=== PATIENT | female | born 2000 | race Caucasian/White ===

== ENCOUNTER 2024-12-17 18:09 | Emergency (ER) | payer BC, SELFPAY ==
[2024-12-17 18:12] VITALS: BP 137/91
[2024-12-17 18:35] LABS: % Basophils 0.4 % (0-2); % Eosinophils 3.2 % (0-6); % Immature Granulocytes 0.3 % (0-0.5); % Lymphocytes 30.8 % (20.5-51.1); % Monocytes 9.1 % (1.7-9.3); % Neutrophils 56.2 % (42.2-75.2); Absolute Eosinophils 0.2 10^3/uL (0-0.7); Absolute Lymphocytes 2.3 10^3/uL (1.2-3.4); Absolute Monocytes 0.7 10^3/uL (0.1-0.6); Absolute Neutrophils 4.2 10^3/uL (1.4-6.5); Hematocrit 40.1 % (37.0-47.0); Hemoglobin 13.7 g/dL (12.0-16.0); Mean Corp Hgb Conc. 34.2 g/dL (33.0-37.0); Mean Corpuscular Hgb 30.2 pg (27.0-31.0); Mean Corpuscular Volume 88.5 fL (81.0-99.0); Nucleated Red Blood Cells % 0 %; Platelet Count 280 10^3/uL (130-400); Red Blood Cell Count 4.53 10^6/uL (4.20-5.40); Red Cell Dist. Width 12.2 % (11.5-14.5); White Blood Cell Count 7.5 10^3/uL (4.8-10.8)
[2024-12-17 18:46] LABS: HCG, Serum Qualitative Screen Negative
[2024-12-17 18:52] LABS: ALT (SGPT) 30 U/L (0-35); AST (SGOT) 23 U/L (14-36); Albumin 4.9 g/dl (3.5-5.0); Alkaline Phosphatase 34 U/L (38-126); Blood Urea Nitrogen 13 mg/dl (7-17); Calcium 9.6 mg/dl (8.4-10.2); Carbon Dioxide 24 mmol/L (22-30); Chloride 110 mmol/L (98-107); Glucose 64 mg/dl (70-99); Sodium 141 mmol/L (135-145); Total Bilirubin 0.7 mg/dl (0.2-1.3); Total Protein 7.2 g/dl (6.3-8.2); eGFR > 60.00
--- NOTE | 2024-12-17 22:49 | ED.GENMED ---
History of Present Illness
General
Chief Complaint: Abdominal Pain
Source: patient
Exam Limitations: none
Time Seen by Provider: 12/17/24 22:45
Nursing documentation reviewed up to this point in time: agreed with
History of Present Illness
History of Present Illness:
This a pleasant 24-year-old female presents to the emergency department with left lower quadrant and pelvic pain that has been progressively worsening for the last week. She does report some light vaginal bleeding. She is midcycle and states that
this pain is reminiscent of previous ovarian cysts. She denies any pelvic surgeries. She did have appendectomy. Denies fever, chills, chest pain, or shortness of breath.
Vital signs are stable. Patient not hypoxic
Nursing note reviewed. I agree with nursing documentation up to this point in time.
Home Meds and allergies reviewed.
NUMBER AND COMPLEXITY OF PROBLEMS ADDRESSED AT THE ENCOUNTER
� Chronic conditions affecting care: None
� Acute Exacerbation and/or Progression of Chronic Illness: Acute illness
� Differential Diagnosis includes: Ovarian cyst, less likely torsion
AMOUNT AND/OR COMPLEXITY OF DATA TO BE REVIEWED AND ANALYZED
I performed an independent evaluation of the following and my interpretation is:
EKG:
Pulse Ox: Not Hypoxic
Hide Dyer: Sinus Rhythm
CT:
X-rays:
Ultrasound:
Laboratory Studies: negative
Other:
Review of other/old records:
Clinical information was obtained by an independent historian:
Prescriptions/Medications Considered but not given:
Further testing considered but not performed:
RISK OF COMPLICATIONS AND/OR MORBIDITY OR MORTALITY OF PATIENT MANAGEMENT
Social determinants of health affecting care: Good Social Support, significant other at the bedside
Discussion with other providers:
Escalation of care including admission/observation vs risk of discharge considered:
CRITICAL CARE NOTE:
Total Time (exclusive of procedures):
Update:
Review of Systems
Review of Systems
Allergies reviewed?: Yes
All Other Systems: ROS reviewed and negative except as documented in HPI and ROS
Constitutional: Reports no symptoms
EENT: Reports no symptoms
Respiratory: Reports no symptoms
Cardiac: Reports no symptoms
ABD/GI: Reports no symptoms
: Reports bleeding (Left lower pelvic pain)
Musculoskeletal: Reports no symptoms
Skin: Reports no symptoms
Neurological: Reports no symptoms
Endocrine: Reports no symptoms
Hematologic/Lymphatic: Reports no symptoms
Psychiatric: Reports anxiety
Phy Exam
General Physical Exam
General Presentation: well appearing and no apparent distress
General Skin: warm and dry
General Habitus: normal
General Mental: alert
General Hydration: appears well hydrated
ENT Exam
ENT Exam: EOMI, pharynx normal, neck supple and normocephalic
Eye Exam
Eye Exam: PERRL, cornea clear and conjunctiva normal
Cardiovascular Exam
Cardiovascular Exam: regular rate/rhythm, no edema, no murmur and normal peripheral pulses
Pulmonary Exam
Pulmonary Exam: lungs clear, no respiratory distress, no rales, no crackles, no rhonchi, no stridor, no wheezing and no cough
Gastrointestinal Exam
Gastrointestinal Exam: normal bowel sounds, non tender, soft, no organomegaly, no pulsatile mass, non distended and other (No CVA tenderness)
Neurological Exam
Neurological Exam: alert, oriented x3, no motor deficits and speech normal
Musculoskeletal Exam
Musculoskeletal Exam: full ROM and no edema
Skin Exam
Skin Exam: normal color, warm/dry, no rash and no petechia
Psychiatric Exam
Psychiatric Exam: normal mood/affect
Course
Orders/Labs/Results
Orders:
Orders
12/17/24 18:14
Test Result ONCE
12/17/24 18:18
Complete Blood Count/With Diff Urgent
Comprehensive Metabolic Panel Urgent
HCG, Serum Qualitative Screen Urgent
12/17/24 22:58
0.9% Sodium Chloride 1000 ml [Nss] 1,000 ml IV BOLUS
12/17/24 23:02
Urinalysis Reflex To Culture Urgent
Date Specimen was Collected: 12/18/24
Time Specimen was Collected: 00:49
12/18/24 00:00
US Pelvis Only (non-obstetric) Urgent
Reason For Exam: left pelvic pain
12/18/24 01:18
CT Abd/pel Without Iv Or Oral Urgent
Comment:
Reason For Exam: left flank pain
Abnormal Lab Results
12/17/24
18:18
Absolute Monos (auto) 0.7 H 10^3/uL
(0.1-0.6)
Chloride 110 H mmol/L
(98-107)
Glucose 64 L mg/dl
(70-99)
Alkaline Phosphatase 34 L U/L
(38-126)
12/17/24 18:18
12/17/24 18:18
Vital Signs
Initial and Last Documented VS:
Initial Vital Signs
Temp Pulse Resp BP Pulse Ox
98.5 F 98 16 137/91 99
12/17/24 18:12 12/17/24 18:12 12/17/24 18:12 12/17/24 18:12 12/17/24 18:12
Last Documented Vital Signs
Temp Pulse Resp BP Pulse Ox
98.5 F 74 16 111/70 99
12/17/24 18:12 12/18/24 03:50 12/17/24 18:12 12/18/24 03:50 12/18/24 03:50
*Critical Care Note
Total Time (30-74mins, 75-104mins- exclusive of procedures): Not Applicable
Update Note
Update Note:
NAME: ADRIAN BEE
DATE OF EXAM: 12/18/2024
Patient No: [id number]
Physician: INES^GLENDY^P.
Date of : 2000
Past Medical History (entered by Technologist):
Reason For Exam (entered by Technologist):
Other Notes (entered by Technologist):
Additional Information (per [facility]):
Left pelvic pain, history of endometriosis, negative test
Ultrasound pelvis
IMPRESSION:
Normal uterus. Endometrium measures 0.7 cm.
Nonenlarged ovaries with multiple follicles and normal vascular flow. No dominant cyst.
NAME: ADRIAN BEE
DATE OF EXAM: 12/18/2024
Patient No: [id number]
Physician: BEATRIZ^P.
Date of : 2000
Past Medical History (entered by Technologist):
Reason For Exam (entered by Technologist): llq/lt flank pain
Other Notes (entered by Technologist):
Additional Information (per [facility]):
CT abdomen and pelvis without IV contrast
IMPRESSION:
No obstructive uropathy or perinephric stranding. No renal or ureteral stones. Decompressed bladder with diffuse wall thickening, correlate with urinalysis for cystitis.
Mild stool filled colon. No bowel obstruction, abscess or free air. Appendectomy.
No pericholecystic or peripancreatic inflammation.
No acute osseous abnormality.
Pelvic exam performed in the presence of female nursing. External genitalia is intact. Pubic hair shaved but no signs of cellulitis or folliculitis. There is no discharge or bleeding noted. No cervical motion tenderness. No adnexal tenderness
bilaterally. No chandelier sign.
ED Attending Note
-
Portions of this chart may have been created with voice recognition software.� Occasional wrong word or��sound alike� substitutions may have occurred due to the inherent limitations of voice recognition software.
Discharge Plan
Departure
Patient Disposition: Home (Routine Discharge)
Date of Disposition: 12/18/24
Time of Disposition: 03:43
Patient with high blood pressure during this ER visit?: Yes
Condition: Good
Discharge Problem:
Pelvic pain
Instructions: Pelvic pain - ED discharge instructions
Prescriptions:
New
diclofenac sodium 75 mg tablet,delayed release (DR/EC)
75 mg PO BID Qty: 10 0RF
Referrals:
[facility] [Provider Group]
[facility] [Outside]
[facility] [Outside]
NONE,* [Family Provider] -
Activity Restrictions/Additional Instructions:
Thank You for choosing [facility].
It was a pleasure meeting you and taking part in your care. We hope for your continued healing and wellness.
Please read discharge instructions in their entirety. However, they are for general education and may not describe your exact diagnosis at discharge. Information on your ER visit and medical conditions were discussed with you along with appropriate
follow up information...
If indicated, please take your medications as instructed and indicated on discharge paperwork.
Please schedule a follow up appointment as directed. Call to schedule an appointment
Please return to the emergency department with ANY change in, persisting, or worsening of symptoms. If any of your symptoms do not improve, or persist, or become more severe within 6-12 hours, please return to the emergency department for further
care.
Please return to the emergency department if you develop a headache, neck pain/stiffness, fever greater than 100.4F, chest pain, shortness of breath, persistent nausea, vomiting, slurred speech, difficulty walking, numbness/tingling, weakness, signs
of infection or any other symptoms that are worrisome to you.
If you have any questions or concerns please do not hesitate to call the Hospital at or E-mail me directly at [email or web address]
Interventions
Interventions:
*Risk Screen - Suicide Last Done: 12/17/24 18:13
*General Assessment Last Done: 12/17/24 23:21
*Neglect/Abuse Screening Last Done: 12/17/24 18:13
*ED- Fall Risk Assessment Last Done: 12/17/24 23:21
*ED COVID-19 Vaccine History Last Done: 12/17/24 23:21
*Nursing Disposition Last Done: 12/18/24 04:04
BT-Nnehjz-Tuwrqjaxjr Assessment Last Done: 12/17/24 23:21
Discharge Date and Time
Discharge Date/Time: 12/18/24 04:04
Print Language: ITALIAN
[2024-12-17] MEDS: NSS 1000 IV (23:15)
[2024-12-18 00:47] VITALS: BP 123/72
[2024-12-18 01:11] LABS: Urine Albumin Negative (Neg - Trace); Urine Bilirubin Negative (Negative); Urine Character Clear (Clear); Urine Color Yellow; Urine Glucose Negative (Negative); Urine Ketone Negative (Negative); Urine Leukocyte Negative (Negative); Urine Nitrite Negative (Negative); Urine Occult Blood Negative (Negative); Urine Specific Gravity 1.015 (<1.030); Urine Urobilinogen Negative (Neg - 1+); Urine pH 6.5 (5.0-9.0)
[2024-12-18 03:50] VITALS: BP 111/70
== END 2024-12-18 04:04 | disposition home or self-care (01) ==
LOC: EMR 18:09
PROVIDERS: Student in an Organized Health Care Education/Training Program; EMERGENCY PHYSICIAN Student in an Organized Health Care Education/Training Program
DX: R10.2 Pelvic and perineal pain (principal); Z90.49 Acquired absence of other specified parts of digestive tract
CPT/HCPCS: 96360; 99284; 74176; 76856; 80053; 81003; 84703; 85025